=== PATIENT | female | born 1995 | race African-American/Black ===

== ENCOUNTER 2023-08-09 01:31 | Emergency (ER) | payer MEDICAID ==
[~2023-08-09] VITALS: Ht 167.6 cm; Wt 102.0 kg
[2023-08-09 02:00] VITALS: BP 131/82; PULSE 62; RESP 16; TEMP 98; O2SAT 100
[2023-08-09] MEDS ORDERED: GUAI600T26 MT (05:44)
[2023-08-09] MEDS ORDERED: AMOX-494 MT (05:44)
[2023-08-09] MEDS ORDERED: MED4 MT (05:44)
[2023-08-09] MEDS: AMOXICILLIN 500 MG CAPSULE PO ONE (05:59)
== END 2023-08-09 05:57 | disposition home or self-care (01) ==
LOC: ER 01:31
DX: J32.9 Chronic sinusitis, unspecified (principal); R05.9 Cough, unspecified; R09.81 Nasal congestion; Z20.822 Contact with and (suspected) exposure to COVID-19
CPT/HCPCS: 81025; 87070; 87426; 87430; 99283

== ENCOUNTER 2024-04-04 04:04 | Emergency (ER) | payer MEDICAID, OTHER ==
[~2024-04-04] VITALS: Ht 170.2 cm; Wt 102.0 kg
[~2024-04-04 04:04] MED LIST: AMOX-494 MT; GUAI600T26 MT; METH4TAB95 MT
[2024-04-04 04:11] VITALS: O2SAT 97
[2024-04-04 04:18] VITALS: BP 108/57; PULSE 69; RESP 16; TEMP 97.8; O2SAT 100
[2024-04-04] MEDS: ACETAMINOPHEN 325MG TABLET PO ONE (04:30)
== END 2024-04-04 05:35 | disposition home or self-care (01) ==
LOC: ER 04:04
DX: J02.9 Acute pharyngitis, unspecified (principal)
CPT/HCPCS: 87070; 87430; 99283